=== PATIENT | female | born 1940 | race Caucasian/White ===

== ENCOUNTER → 2023-10-07 12:33 | Outpatient (REF) | payer MEDICARE, SELFPAY ==
[2023-10-07 12:58] LABS: % Basophils 0.7 % (0-2); % Eosinophils 2.4 % (0-6); % Immature Granulocytes 0.1 % (0-0.5); % Lymphocytes 28.9 % (20.5-51.1); % Monocytes 7.4 % (1.7-9.3); % Neutrophils 60.5 % (42.2-75.2); Absolute Basophils 0.1 10^3/uL (0-0.2); Absolute Eosinophils 0.2 10^3/uL (0-0.7); Absolute Monocytes 0.5 10^3/uL (0.1-0.6); Absolute Neutrophils 4.1 10^3/uL (1.4-6.5); Hematocrit 34.9 % (37.0-47.0); Hemoglobin 11.8 g/dL (12.0-16.0); Mean Corp Hgb Conc. 33.8 g/dL (33.0-37.0); Mean Corpuscular Hgb 27.8 pg (27.0-31.0); Mean Corpuscular Volume 82.3 fL (81.0-99.0); Mean Platelet Volume 11.2 fL (7.4-10.4); Nucleated Red Blood Cells % 0 %; Platelet Count 209 10^3/uL (130-400); Red Blood Cell Count 4.24 10^6/uL (4.20-5.40); Red Cell Dist. Width 14.7 % (11.5-14.5); White Blood Cell Count 6.7 10^3/uL (4.8-10.8)
[2023-10-07 13:06] LABS: ALT (SGPT) 11 U/L (0-35); AST (SGOT) 21 U/L (14-36); Albumin 3.2 g/dl (3.5-5.0); Alkaline Phosphatase 72 U/L (38-126); Blood Urea Nitrogen 16 mg/dl (7-17); Calcium 8.8 mg/dl (8.4-10.2); Carbon Dioxide 30 mmol/L (22-30); Chloride 100 mmol/L (98-107); Glucose 91 mg/dl (70-99); Potassium 3.8 mmol/L (3.5-5.1); Sodium 137 mmol/L (135-145); Total Bilirubin 0.5 mg/dl (0.2-1.3); Total Protein 6.2 g/dl (6.3-8.2); eGFR > 60.00
[2023-10-08 11:15] LABS: Glycohemoglobin (HgbA1c) 5.6 % (4.0-5.6)
== END ==
LOC: OLABMERCHI 12:33
PROVIDERS: ATTENDING PHYSICIAN Nurse Practitioner Gerontology; FAMILY PHYSICIAN Hospitalist
DX: D64.9 Anemia, unspecified (principal); R94.4 Abnormal results of kidney function studies; E11.9 Type 2 diabetes mellitus without complications
CPT/HCPCS: 36415; 80053; 83036; 85025

== ENCOUNTER 2024-01-26 18:27 | Inpatient (IN) | payer MEDICARE, OTHER, BC, SELFPAY ==
[2024-01-24] VITALS (14 sets, daily range): BP systolic 128–173; BP diastolic 36–120; BMI 30.2
[2024-01-24 11:13] LABS: % Basophils 0.8 % (0-2); % Immature Granulocytes 0.3 % (0-0.5); % Lymphocytes 27.2 % (20.5-51.1); % Monocytes 6.7 % (1.7-9.3); Absolute Basophils 0.1 10^3/uL (0-0.2); Absolute Eosinophils 0.2 10^3/uL (0-0.7); Absolute Lymphocytes 2.2 10^3/uL (1.2-3.4); Absolute Monocytes 0.5 10^3/uL (0.1-0.6); Hemoglobin 11.9 g/dL (12.0-16.0); Mean Corpuscular Hgb 28.1 pg (27.0-31.0); Mean Corpuscular Volume 82.5 fL (81.0-99.0); Mean Platelet Volume 9.3 fL (7.4-10.4); Nucleated Red Blood Cells % 0 %; Platelet Count 213 10^3/uL (130-400); Red Blood Cell Count 4.24 10^6/uL (4.20-5.40); Red Cell Dist. Width 14.3 % (11.5-14.5)
[2024-01-24 11:29] LABS: Ammonia < 9 umol/L (9-30)
[2024-01-24 12:12] LABS: Blood Urea Nitrogen 13 mg/dl (7-17); Calcium 8.9 mg/dl (8.4-10.2); Carbon Dioxide 27 mmol/L (22-30); Chloride 104 mmol/L (98-107); Estimated Creatinine Clearance 53 ml/min; Glucose 107 mg/dl (70-99); Sodium 134 mmol/L (135-145); eGFR > 60.00
[2024-01-24] MEDS: ATIVAN 0.5 MG IV (12:33)
[2024-01-24 12:44] LABS: TSH Reflex To Free T4 0.54 uIU/ml (0.47-4.68)
[2024-01-24 14:46] LABS: ALT (SGPT) 13 U/L (0-35); AST (SGOT) 21 U/L (14-36); Albumin 3.3 g/dl (3.5-5.0); Alkaline Phosphatase 86 U/L (38-126); Blood Urea Nitrogen 12 mg/dl (7-17); Calcium 8.7 mg/dl (8.4-10.2); Carbon Dioxide 31 mmol/L (22-30); Chloride 104 mmol/L (98-107); Estimated Creatinine Clearance 47 ml/min; Glucose 101 mg/dl (70-99); Potassium 3.8 mmol/L (3.5-5.1); Sodium 139 mmol/L (135-145); Total Bilirubin 0.5 mg/dl (0.2-1.3); Total Protein 6.4 g/dl (6.3-8.2); eGFR > 60.00
--- NOTE | 2024-01-24 15:25 | ED.GENMED ---
History of Present Illness
General
Chief Complaint: Change in Mental Status
Source: patient, spouse and family
Exam Limitations: none
Time Seen by Provider: 01/24/24 10:42
Nursing documentation reviewed up to this point in time: agreed with
Travel History
Have you had any contact with someone who has COVID-19?: No
Do you have any symptoms of coronavirus? Fever > 100 degrees, chills, cough, shortness of breath, sore throat, loss of taste or smell, muscle aches, or headache?: No
History of Present Illness
History of Present Illness:
Patient is an 84-year-old female who presents to the emergency department with mental status changes. Patient was diagnosed with minor dementia approximately 5 years ago. However over the past 3 months the patient has gotten significantly worse
especially the past 6 weeks. Patient is now becoming nearly nonverbal. Patient has no appetite and is constantly fatigued. Patient requires a wheelchair and is not able to walk independently. Patient is able to toilet on her own but not bathing.
Patient seems to be leaning to her right. Patient's speech is gradually gotten worse. Patient denies fever chills, upper respiratory infection.
Past History
Past History
ED Past Medical History: HTN, Psychiatric and Other (Dementia)
Social History
Tobacco: Non-smoker
Personal:
Review of Systems
Review of Systems
Unable to obtain full review of systems at this time due to: dementia
All Other Systems: Not applicable
Phy Exam
General Physical Exam
General Presentation: well appearing and no apparent distress
General age: appears older than age
General Skin: warm and dry
General Habitus: normal and elderly
General Mental: alert and usual mental status (Patient is unable to answer any questions on her own)
General Hydration: appears well hydrated
ENT Exam
ENT Exam: neck supple and normocephalic
Eye Exam
Eye Exam: EOMI, conjunctiva normal and globe normal
Cardiovascular Exam
Cardiovascular Exam: regular rate/rhythm, no edema, no gallop, no JVD and no murmur
Heart Sounds: normal
Pulmonary Exam
Pulmonary Exam: lungs clear, no respiratory distress, chest non tender and no stridor
Gastrointestinal Exam
Gastrointestinal Exam: normal bowel sounds, non tender, soft and no organomegaly
Neurological Exam
Neurological Exam: alert (But disoriented to place and time), CN II-XII intact, no motor deficits, confused and cerebellum intact
Musculoskeletal Exam
Musculoskeletal Exam: full ROM
Skin Exam
Skin Exam: normal color, warm/dry, no rash and no petechia
Psychiatric Exam
Psychiatric Exam: agitated (At times)
Scores
Heart Failure Risk
Heart Failure Risk Score: Not Applicable
Heart Score for Chest Pain Patients
STEMI patient?: Not applicable
Withdrawal Assessment of Alcohol
Withdrawal Assessment Completed?: Not applicable
Course
Orders/Labs/Results
Orders:
Orders
01/24/24 10:59
Urinalysis Reflex To Culture Urgent
Date Specimen was Collected: 01/24/24
Time Specimen was Collected: 11:12
01/24/24 11:08
Ammonia Urgent
Basic Metabolic Panel Urgent
Complete Blood Count/With Diff Urgent
TSH Reflex To Free T4 Urgent
01/24/24 11:25
CT Head W/o Iv Contrast Urgent
Comment:
Reason For Exam: change in mental status
01/24/24 12:30
Lorazepam [Ativan] 0.5 mg IV NOW STA
01/24/24 14:20
Comprehensive Metabolic Panel Urgent
Abnormal Lab Results
01/24/24 01/24/24
11:08 14:20
Hgb 11.9 L g/dL
(12.0-16.0)
Hct 35.0 L %
(37.0-47.0)
Sodium 134 L mmol/L
(135-145)
Carbon Dioxide 31 H mmol/L
(22-30)
Glucose 107 H mg/dl 101 H mg/dl
(70-99) (70-99)
Ammonia < 9 L umol/L
(9-30)
Albumin 3.3 L g/dl
(3.5-5.0)
01/24/24 11:08
01/24/24 14:20
Vital Signs
Initial and Last Documented VS:
Initial Vital Signs
Temp Pulse Resp BP Pulse Ox
98.6 F 68 18 152/78 94
01/24/24 09:41 01/24/24 09:41 01/24/24 09:41 01/24/24 09:41 01/24/24 09:41
Last Documented Vital Signs
Temp Pulse Resp BP Pulse Ox
98.6 F 68 18 143/54 91
01/24/24 09:41 01/24/24 09:41 01/24/24 09:41 01/24/24 15:00 01/24/24 14:51
*Radiology
Radiology exam reviewed: radiology read reviewed
*Pulse Oximetry
Patient hypoxic: no
*EKG
Interpreted by ED Provider?: NA
*Licensed Massage Practitioner Interpretation
Rate: normal
Interpretation: normal
Heart Rate: 70
Rhythm: sinus
*Critical Care Note
Total Time (30-74mins, 75-104mins- exclusive of procedures): Not Applicable
Update Note
Update Note:
Patient seen by neurology and admission recommended. Patient will be admitted to hospitalist.
ED Attending Note
-
Portions of this chart may have been created with voice recognition software.� Occasional wrong word or��sound alike� substitutions may have occurred due to the inherent limitations of voice recognition software.
Discharge Plan
Departure
Patient Disposition: Admit
Date of Disposition: 01/24/24
Time of Disposition: 15:25
Admit to: Telemetry
Admit to doctor: Hospitalist
Presentation/result/management discussed w/ accepting MD/DO: Neurology
Patient with high blood pressure during this ER visit?: Yes
Condition: Fair
Covid-19: Not Applicable
Discharge Problem:
Acute on chronic alteration in mental status
Prescriptions:
No Action
donepezil 10 mg tablet
5 mg PO DAILY
levothyroxine 25 mcg tablet
25 mcg PO DAILY
metoprolol succinate 25 mg tablet extended release 24 hr
12.5 mg PO DAILY
lisinopril 40 mg tablet
20 mg PO DAILY
Trintellix 20 mg tablet
15 mg PO DAILY
Referrals:
Jocelyn Pelaez DO [Family Provider] -
Interventions
Interventions:
*Risk Screen - Suicide Last Done: 01/24/24 11:12
*General Assessment Last Done: 01/24/24 11:12
*Neglect/Abuse Screening Last Done: 01/24/24 11:12
ED- Fall Risk Assessment Last Done: 01/24/24 11:10
*ED COVID-19 Vaccine History Last Done: 01/24/24 09:49
ED- Neurological Assessment Last Done: 01/24/24 11:10
ED- Cardiac Assessment Last Done: 01/24/24 11:10
ED Swallowing Screen Last Done: 01/24/24 11:11
Discharge Date and Time
Print Language: CITIZEN OF [place]
--- NOTE | 2024-01-24 16:37 | CON.NEURO4 ---
Addendum entered and electronically signed by Roscoe Marion MD 01/25/24 06:55:
Recommendations
-MRI brain without contrast MRA neck with contrast
-Aspirin 81 mg daily
-Minimize sedating medications avoid benzodiazepines
-Neuro checks and NIH scales
-Normotension
-Mobilization PT/OT
-Check TSH/B12, B1
-Follow basic electrolytes, kidney function
-Okay to continue Vortioxetine from my POV
-Counseled family on my concern for patient's generalized decline, agreeing she most likely has underlying dementia, and overall frailty and expectations moving forward
Original Note:
Consultation - Neurology 4
-
CONSULTING PHYSICIAN: Lily Marion
REFERRING PHYSICIAN: ER
DICTATED BY: Lily Marion
DATE/TIME OF REQUEST: 01/24/24
DATE/TIME OF CONSULTATION: 01/24/24
Reason for Consultation: Worsening overall function, mental status and speech
History of Present Illness:
Patient is an 84-year-old woman with a past ministry of nonspecific dementia, hypertension, depression who presents to the hospital after being referred by primary care doctor due to significant overall worsening in function as well as gait and
speech over the past 2 weeks which seem to be an abrupt change.
Patient had had an overall decline over the course of the couple months even before her rapid decline 2 weeks ago. She had had at first COVID infection at the end of July and early August, then followed by pneumonia for which she was treated
with antibiotics in the early part of September, and then had what was felt to be most likely shingles in October with a small rash bilaterally in the upper shoulders. With each of these conditions she did not make a significant back and she had
significant immobility during them.
Working with physical therapy has seen significant worsening in her walking ability to the point where she cannot walk on her own. She also seems to be leaning to the left a little bit more in the past 2 weeks and has significant change in her
speech around 2 weeks ago. Her noticed that there may have been some subtle dragging in the left leg which seem to be a bit of a change from baseline although she has had some orthopedic issues of the left leg in the past.
Patient has had no prior history of known TIA or ischemic stroke or heart attack.
Patient had been going through a lot of emotional and depression issues at the end of July and had had some medication adjustments by her psychiatrist at that time. She had been tried on Abilify but now has been on Vortioxetine.
Patient was diagnosed with early dementia along with some depression around 5 years ago they did see a neurologist at this time and have continue to follow with a psychiatrist buthave not seen a neurologist in a couple of years. Family does feel
like they have seen cognitive changes in memory consistent with worsening dementia over the past 5 years.
Past Medical History: Unspecified dementia, depression, hypothyroidism, hypertension
Family History: Non-contributory
Social History: and lives with her in independent living community, she is retired from work, no significant tobacco alcohol or recreational drugs
Allergies: No known drug allergies
Review of Symptoms:
Patient denies any fever, headache, chest pain, shortness of breath, GI or symptoms.
Physical Exam:
Elderly woman no distress no signs of head or neck trauma no meningismus eyes are clear oropharynx is clear heart rate regular breathing unlabored abdomen soft nontender no lower extremity edema
Neurologic Examination:
Patient is awake and alert, her responses are slow, she does identify her and each of her children were appropriately. Patient can say her name. She has limited recall as to recent events and cannot give adequate history. She is not able
to perform any simple subtractions but can state that there are 4 quarters in a dollar. She is unable to identify the color red on her debit card. She is unable to obey three-step commands, but will obey simple one-step commands consistently.
Significant psychomotor slowing. No obvious hemineglect.
Cranial nerve examination shows no hemianopia visual lerner intact confrontation bilaterally smile symmetric no dysarthria extraocular's are movement with resting gaze midline
Motor examination shows generalized weakness 4/5 shoulder abduction bilaterally, no pronator drift downwards on the arms, leg efforts show 3/5 hip flexion bilaterally.
Intact noxious stimulation throughout
Reflexes are diminished throughout no clonus or asymmetry of reflexes
No ataxia and spontaneous movements of arms or when held above her head
Gait defferred
Neuro Imaging: CT head with asymemtry on right parietal lobe crowded nearly absent sulci but no clear hypodensity, possible anatomic variant like polymicrogyria versus subacute infarct, less likely a neoplasm. No hemorrhage
Impression
1. Patient has had significant abrupt change around 2 weeks ago raising the possibility of an ischemic stroke happening 2 weeks ago.
2. Patient has had global overall decline most likely attributable to COVID-19, then pneumonia, then shingles representing 3 different significant health insults in an elderly patient with likely pre-existing dementia.
3. Patient received a diagnosis of early dementia around 5 years ago, most likely would be either Alzheimer's disease versus vascular based dementia.
4. Hypertension
5. Depression, had been a significant issue in July 2023
Recommendations:
Discussed patient care with: ED, patient and her family at bedside
NIH Stroke Score
Subsequent NIH Scale
Date of Subsequent NIH Scale: 01/24/24
Time of Subsequent NIH Scale: 16:48
NIH Stroke Score
Level of Consciousness: 0 - Alert
LOC Questions: 2-Neither correct
LOC Commands: 1-Performs one correctly
Best Horizontal Gaze: 0-Normal
Visual Lerner: 0=Normal, no visual loss
Facial Palsy: 0=Normal, symmetrical
Motor - Right Arm: 0=No drift 10 seconds
Motor - Left Arm: 0=No drift 10 seconds
Motor - Right Le-Partial vs. gravity
Motor - Left Le-Partial vs. gravity
Limb Ataxia: 0-Absent
Sensation: 0-Normal
Best Language: 2-Severe aphasia
Dysarthria: 1-Mild slurring
Extinction and Inattention: 0-No abnormality
Total Score:: 10
Home Medications
-
Home Medications
donepezil 10 mg tablet 5 mg PO DAILY 01/24/24
levothyroxine 25 mcg tablet 25 mcg PO DAILY 01/24/24
lisinopril 40 mg tablet 20 mg PO DAILY 01/24/24
metoprolol succinate 25 mg tablet,extended release 24 hr 12.5 mg PO DAILY 01/24/24
vortioxetine 20 mg tablet (Trintellix) 15 mg PO DAILY 01/24/24
Allergies
-
Allergies
Allergy/AdvReac Type Severity Reaction Status Date / Time
No Known Allergies Allergy Verified 01/24/24 09:53
Vital Signs / Labs
-
Vital Signs and Labs:
Temp Pulse Resp BP Pulse Ox
98.6 F 68 18 145/63 91
01/24/24 09:41 01/24/24 09:41 01/24/24 09:41 01/24/24 16:00 01/24/24 14:51
01/24/24 11:08
01/24/24 14:20
01/24/24 01/24/24
11:08 14:20
Hgb 11.9 L
Hct 35.0 L
Sodium 134 L
Carbon Dioxide 31 H
Glucose 107 H 101 H
Ammonia < 9 L
Albumin 3.3 L
[2024-01-24] MEDS: ASPIRIN 325 MG PO (17:06)
--- NOTE | 2024-01-24 17:08 | CM ---
Patient seen at bedside with physician, patient daughters and . Patient lives with in an apartment at [facility]. Patient with diagnosis per daughter of dementia, and POA/Advance directive provided and copy
placed on chart by nursing. [facility] and daughter has reached out to [facility] for aides and supports. Patient PCP at [facility] is Dr. Pelaez and they use the [facility] in [facility]. Patient with new
issues in last several weeks. Patient family anticipate need for either aides or snf. Patient being admitted as OBS/BACA; form reviewed and signed by patient , copy given to nursing to scan into chart. Patient family supportive. CM will
continue to follow for discharge planning needs.
Plan; SNF vs home with aides/PT/OT and speech/VN at [facility]
--- NOTE | 2024-01-24 17:09 | HPS.HSE ---
Family Physician
-
Family Physician: Jocelyn Pelaez DO
Chief Complaint
-
Fatigue, difficulty ambulating, no appetite
History of Present Illness
Patient is an 84-year-old female who is a resident of [facility] who was diagnosed with mild dementia in November 2020. History has been obtained through speaking with the patient's daughters and . In July 2023, patient
developed COVID, September and had pneumonia, October then had shingles. Patient has been receiving physical therapy and Occupational Therapy and 2 weeks ago the patient's daughter got a phone call that the patient's mobility has declined. She stated
that she has been sleeping and her cognitive decline has also been worse over the last 2 weeks. Memory issues and speech have been an issue. Patient was dragging her left foot and leaning toward the right as well. Workup in the emergency
department finds her to be slightly anemic with a hemoglobin of 11.9 and CAT scan of her head with a possibility of a subacute stroke. It was felt that she needed to come in for a neurology workup. She is being brought in as observation.
Medical History
Past Medical History
Past Medical History: Reports Other
Additional Past Medical History:
Mild dementia diagnosed in November 2020
Essential hypertension
Hypothyroidism
Depression
Past Surgical History: Reports Other
Additional Past Surgical History:
Hysterectomy
Appendectomy
Left knee total knee replacement x 2
Social History
Unable to obtain full social history at this time due to: Dementia (This has been obtained by family)
Tobacco: Former Smoker (Quit tobacco in 1979)
Alcohol: None
Drug: None
Personal:
Living: With Family
Family History
Family History: Other (Brother had dementia after heart surgery, sister had dementia after colon surgery--- cancer and heart disease runs in her family)
Allergies / Home Medications
Allergies reflects when Allergies were last updated in [employer].
Home Medications with original date entered in [employer]
Allergy/Medication List:
Allergies
Allergy/AdvReac Type Severity Reaction Status Date / Time
No Known Allergies Allergy Verified 01/24/24 09:53
Home Medications
donepezil 10 mg tablet 5 mg PO DAILY 01/24/24
levothyroxine 25 mcg tablet 25 mcg PO DAILY 01/24/24
lisinopril 40 mg tablet 20 mg PO DAILY 01/24/24
metoprolol succinate 25 mg tablet,extended release 24 hr 12.5 mg PO DAILY 01/24/24
vortioxetine 20 mg tablet (Trintellix) 15 mg PO DAILY 01/24/24
Review of Systems
-
Unable to obtain full review of systems at this time due to: Dementia
History Source: Family
Constitutional: Reports No Symptoms
EENT: Reports No Symptoms
Respiratory: Reports No Symptoms
Cardiac: Reports No Symptoms
Abdomen/GI: Reports Anorexia
: Reports No Symptoms
Musculoskeletal: Reports No Symptoms
Neurological: Reports Headache, Weakness and Other (Tremors per family--dragging left foot behind her and leaning toward the right)
Endocrine: Reports No Symptoms
Hematologic/Lymphatic: Reports No Symptoms
Psych: Reports No Symptoms
Physical Exam
Vital Signs
Vital Signs
Temp Pulse Resp BP Pulse Ox
98.6 F 68 18 145/63 91
01/24/24 09:41 01/24/24 09:41 01/24/24 09:41 01/24/24 16:00 01/24/24 14:51
Physical Exam
General: Well Developed, Well Nourished and No Apparent Distress
HEENT: NormoCephalic and Anicteric; No Oxygen
Respiratory: Clear; No Wheezes, Rales, Rhonchi or Crackles
Cardiac: S1/S2 and Regular Rhythm; No Murmur
GI: Soft, Non Tender, Non Distended and Normal Bowel Sounds
Musculoskeletal: No Clubbing, No Cyanosis and No Edema
Skin: Warm and Dry
Neuro: Awake and Nonfocal/grossly intact (Follows commands, decreased strength in bilateral lower extremities); No Oriented or Tremors (None witnessed)
Psych: Calm
Laboratory Results
-
01/24/24 11:08
01/24/24 14:20
Laboratory Results
Total Bilirubin 0.5 mg/dl (0.2-1.3) 01/24/24 14:20
AST 21 U/L (14-36) 01/24/24 14:20
ALT 13 U/L (0-35) 01/24/24 14:20
Alkaline Phosphatase 86 U/L (38-126) 01/24/24 14:20
Impression/Plan
-
Patient is an 84-year-old female
Change in mental status/activities of daily living--I believe that this is an exacerbation or progression of dementia not encephalopathy--OBS--given CAT scan finding cannot rule out subacute stroke--appreciate neurology--agree with MRI, checking
TSH, B12, folate and reversible causes such as infection--doubt seizures--no indication that ventricles are enlarged on CAT scan but we will keep normal pressure hydrocephalus in the differential--continue aspirin, check lipid panel--PT/OT/speech
Dementia--continue donepezil
Essential hypertension--continue lisinopril and metoprolol with holding parameters
Depression--continue Trintellix
DVT prophylaxis--sequential teds
CODE STATUS--DNR
--- NOTE | 2024-01-24 18:30 | PTCARENOTE ---
Pt admitted to rm 409-2 at this time from the ED. Pt AAOx1, no complaints of pain/SOB, SR on telemetry, HR in the 70s. See NIHSS and assessment for further detail. Oriented pt and family to call cuellar, pressure ulcer reduction, fall risk, plan of
care, reporting concerns etc- family verbalized understanding, pt unable to verbalize understanding. Bed alarm in place for pt's safety and call cuellar within reach.
[2024-01-24 20:33] LABS: Folate 8.3 ng/ml (2.76-20); Vitamin B12 514 pg/ml (239-931)
[2024-01-24 22:51] LABS: Urine Albumin Trace (Neg - Trace); Urine Bilirubin 1+ (Negative); Urine Character Slightly Cloudy (Clear); Urine Color Yellow; Urine Glucose Negative (Negative); Urine Ketone Trace (Negative); Urine Leukocyte Trace (Negative); Urine Nitrite Negative (Negative); Urine Occult Blood Negative (Negative); Urine Urobilinogen 2+ (Neg - 1+)
[2024-01-24 22:54] LABS: Urine Bacteria Many (Negative); Urine Squamous Cell >30 /LPF (Few)
[2024-01-24 22:55] LABS: Urine Red Blood Cell 0-2 /HPF (0-2); Urine White Cell 16-20 /HPF (0-5)
--- NOTE | 2024-01-24 23:52 | PTCARENOTE ---
Medsitter now in use. Pt has been disoriented to time, place, & situation. Does not understand/remember limitations. Call cuellar use explained several times; no evidence of understanding use. Pt found several times w/legs over side of bed. Medsitter
added in addition to bed alarm.
[2024-01-25] VITALS (8 sets, daily range): BP systolic 121–182; BP diastolic 64–83; PULSE 75; O2SAT 93; BMI 30.2
[2024-01-25] MEDS: SYNTHROID 25 MCG PO (05:33)
[2024-01-25 06:33] LABS: Hematocrit 35.3 % (37.0-47.0); Hemoglobin 11.9 g/dL (12.0-16.0); Mean Corp Hgb Conc. 33.7 g/dL (33.0-37.0); Mean Corpuscular Hgb 28.3 pg (27.0-31.0); Mean Corpuscular Volume 83.8 fL (81.0-99.0); Mean Platelet Volume 9.3 fL (7.4-10.4); Platelet Count 192 10^3/uL (130-400); Red Blood Cell Count 4.21 10^6/uL (4.20-5.40); Red Cell Dist. Width 13.9 % (11.5-14.5); White Blood Cell Count 7.9 10^3/uL (4.8-10.8)
[2024-01-25 07:17] LABS: ALT (SGPT) 12 U/L (0-35); AST (SGOT) 22 U/L (14-36); Albumin 3.2 g/dl (3.5-5.0); Alkaline Phosphatase 75 U/L (38-126); Blood Urea Nitrogen 12 mg/dl (7-17); Calcium 8.7 mg/dl (8.4-10.2); Carbon Dioxide 30 mmol/L (22-30); Chloride 104 mmol/L (98-107); Estimated Creatinine Clearance 53 ml/min; Glucose 98 mg/dl (70-99); HDL Cholesterol 45 mg/dl; LDL Cholesterol, Calculated 151 mg/dl; Magnesium 1.9 mg/dl (1.6-2.3); Potassium 3.9 mmol/L (3.5-5.1); Sodium 138 mmol/L (135-145); Total Bilirubin 0.7 mg/dl (0.2-1.3); Total Cholesterol 217 mg/dl (50-199); Total Protein 6.4 g/dl (6.3-8.2); Triglyceride 106 mg/dl (10-149); Very Low Density Lipoprotein 21 mg/dl (0-30); eGFR > 60.00
[2024-01-25 07:27] LABS: TSH Reflex To Free T4 1.04 uIU/ml (0.47-4.68)
--- NOTE | 2024-01-25 08:15 | W.PN.NEURO.1 ---
Addendum entered and electronically signed by Roscoe Marion MD 01/25/24 11:23:
I saw and evaluated the patient I reviewed the note by Emma Valencia agree with the findings the following comments: :
Patient is an 84-year-old woman with a past ministry of nonspecific dementia, hypertension and depression presented hospital with worsening overall functional mental and speech status occurring around 2 weeks ago. She has had a progressive decline
in overall function for the past couple of months with COVID infection in , then pneumonia, then shingles suspected as a rash in the shoulders bilaterally in October. She did not make much of a bounce back after each of these insults.
She been diagnosed with early signs of dementia around 5 years ago by neurologist, was having significant mood and emotional depression problems in July 2023.
CT head noncontrast with the right parietal asymmetry and little sulci in the region, could represent polymicrogyria, subacute infarct or less likely neoplasm
Neurologic examination largely unchanged from yesterday
Patient is awake alert and pleasant, shows significant cognitive impairment with inability to obey complex commands, she can say her name and her 's name, will obey simple commands but no ability to obey complex commands such as calculation
her name the months of the year
Cranial nerves II through XII appear normal to me
Motor examination shows no pronator drift 4/5 shoulder abduction arm flexion hip flexion is 4 -/5 brief effort with hip flexion resistance.
Assessment:
-Possibility for right-sided subacute stroke as an explanation for her worsening around 2 weeks ago
-Alternatively could also simply be a progression of dementia on top of progressive frailty from the insults of recent illnesses over the past couple of months
-Alzheimer's versus a vascular based dementia is suspected as most likely
-Has abnormal urinalysis might just be asymptomatic bactiuria, no signs suggestive of significant infection on systemic WBC, no fever and non-toxic appearing
Recommendations
-Check Vitamin B12, B1, TSH
-Minimize sedating medications
-Continue Donepezil not going to recommend adding Memantine at this time
-Check MRI brain and MRA neck
-Continue aspirin 81 mg daily
-Neuro checks and NIH scales
-Follow urine culture,
-Symptomatic care for dementia, supportive care and case management to assist if any further support for home
Original Note:
Documented by User: Emma Rice NP 01/25/24 11:14
Today's Communication / Plan
-
.
Neuro Assessment/Plan
Assessment
84-year-old female with a PMH of nonspecific dementia, HTN, depression who presents to the hospital on 01/24/24 after being referred by primary care doctor due to significant overall worsening in function as well as gait and speech over the past 2
weeks which seem to be an abrupt change.
Patient had had an overall decline over the course of the couple months even before her rapid decline 2 weeks ago. She had had at first COVID infection at the end of July and early August, then followed by pneumonia for which she was treated
with antibiotics in the early part of September, and then had what was felt to be most likely shingles in October with a small rash bilaterally in the upper shoulders. With each of these conditions she did not make a significant back and she had
significant immobility during them.
Working with physical therapy has seen significant worsening in her walking ability to the point where she cannot walk on her own. She also seems to be leaning to the left a little bit more in the past 2 weeks and has significant change in her
speech around 2 weeks ago. Her noticed that there may have been some subtle dragging in the left leg which seem to be a bit of a change from baseline although she has had some orthopedic issues of the left leg in the past.
Patient was diagnosed with early dementia along with some depression around 5 years ago they did see a neurologist at this time and have continue to follow with a psychiatrist buthave not seen a neurologist in a couple of years. Family does feel
like they have seen cognitive changes in memory consistent with worsening dementia over the past 5 years.
-CT head 01/24/24 with asymmetry on right parietal lobe crowded nearly absent sulci but no clear hypodensity, possible anatomic variant like polymicrogyria versus subacute infarct, less likely a neoplasm. No hemorrhage.
I. Patient has had significant abrupt change around 2 weeks ago raising the possibility of an ischemic stroke happening 2 weeks ago.
II. Patient has had global overall decline most likely attributable to COVID-19, then pneumonia, then shingles representing 3 different significant health insults in an elderly patient with likely pre-existing dementia.
III. Patient received a diagnosis of early dementia around 5 years ago, most likely would be either Alzheimer's disease versus vascular based dementia.
IV. Urinalysis suggestive of UTI, urine culture pending.
V. Hypertension.
. Depression, had been a significant issue in July 2023.
Plan
-Continue aspirin 81mg daily.
-MRI brain, MRA neck pending.
-Goal normotension.
-Minimize sedating medications, avoid benzodiazepines.
-If MRI brain confirms a stroke, LDL goal will be <70. LDL is 151.
-Goal normoglycemia, hbA1c is 5.2.
-NIHSS and neurological checks per unit guidelines.
-Provide patient/family with a stroke education packet.
-PT/OT/ST evaluations.
-DVT prophylaxis.
-Needs eventual outpatient Neuropsychological testing. Ok to continue home donepezil 5mg daily and vortioxetine 15mg daily from Neurology's perspective.
-Will follow pending results.
Subjective/Objective
Subjective Data
Date of Service: January 25, 2024
No acute events overnight. Patient is alert and pleasantly confused today, following simple commands. She reports a mild headache and dizziness. She denies any vision changes, speech/swallow difficulty, numbness, focal weakness, chest pain,
palpitations, and shortness of breath.
Objective Data
Vital Signs
Temp Pulse Resp BP Pulse Ox
97.3 F 69 18 182/83 96
01/25/24 03:12 01/25/24 03:12 01/25/24 03:12 01/25/24 03:12 01/25/24 03:12
Lab Results
01/25/24 06:07
01/25/24 06:07
Sodium 138 mmol/L (135-145) 01/25/24 06:07
Potassium 3.9 mmol/L (3.5-5.1) 01/25/24 06:07
BUN 12 mg/dl (7-17) 01/25/24 06:07
Glucose 98 mg/dl (70-99) 01/25/24 06:07
Calcium 8.7 mg/dl (8.4-10.2) 01/25/24 06:07
LDL Cholesterol, Calc 151 mg/dl 01/25/24 06:07
Vitamin B12 514 pg/ml (239-931) 01/24/24 19:01
Patient Allergies
No Known Allergies Allergy (Verified 01/24/24 09:53)
LDL Level: >70, statin ordered
Review of Systems
-
History Source: Patient
EENT: Negative Blurry Vision, Decreased Vision or Swallowing Difficulty
Respiratory: Negative Cough or Trouble Breathing
Cardiac: Negative Chest Pain or Palpitations
Abdomen/GI: Negative Nausea
Neuro: Dizzy and Headache; Negative Weakness, Numbness, Ataxia, Tremors or Speech Problem
Physical Exam
-
General: No Apparent Distress
Eyes: No Ptosis and PERRLA
HEENT: Normocephalic and Atraumatic
Neck: Full Range of Motion
Respiratory: No Dyspnea
GI: Non-distended
Extremities: No Clubbing, No Cyanosis and No Edema
Psych: Confused
Extended Neurological Exam
Mood & Affect: Mood Unremarkable and Affect Unremarkable
Attention Span & Concentration: Awake, Alert and Interactive
Memory: Reduced (oriented to self only)
Tremor: Hand Tremor Absent and Head Tremor Absent
Involuntary Movement: None
Speech: Quality Unremarkable, Quantity Unremarkable, Rate of Production Unremarkable and Expressive Aphasia (mild expressive aphasia)
Cranial Nerve II: Left Eye: Pupillary Reactivity Unremarkable, Pupillary Size Unremarkable and Visual Lerner Intact
Cranial Nerve II: Right Eye: Pupillary Reactivity Unremarkable, Pupillary Size Unremarkable and Visual Lerner Intact
Cranial Nerves III, IV, : Extraocular Movement: Extraocular Movement Full in all Directions
Cranial Nerve VII: Facial Symmetry: Reduced (slight left facial drooping)
Cranial Nerve VIII: Hearing: Unremarkable Hearing to Normal Conversational Volume
Cranial Nerves IX, X: Palate Movement: Palate Elevation Symmetric
Cranial Nerve XII: Tongue Protusion: Midline
Muscle Strength, Overall: Reduced Throughout (BUE 4+/5, BLE 2/5)
Muscle Bulk & Tone: Bulk Unremarkable and Tone Unremarkable
Pronator Drift: No Drift in Upper Extremities and Unable to Assess (BLE, no effort against gravity)
Touch Sensation: Unable to Assess
Coordination: Unable to Assess
Babinski Sign: Absent Bilaterally
Modified Outlook Score (MRS)
-
Modified Outlook Scale (mRS): Moderately severe disability. Unable to attend to bodily needs/walk.
Score: 4
Data Reviewed
-
CT Head: Report Reviewed and Image Reviewed
MRI Head: Pending
MRA Head: Pending
Labs: Report Reviewed
Lipid Profile: Report Reviewed
HgbA1C: Report Reviewed
Reviewed with: Physician and Patient
Medications
-
Active Medications
Generic Name Dose Route Start Last Admin
Trade Name Freq PRN Reason Stop Dose Admin
Acetaminophen 650 mg 01/24/24 18:20
Acetaminophen 650 Mg Rectal Suppository RECTAL 02/21/24 18:19
Q4HPRN PRN
ROE, mild pain, or temp >100.4F
Acetaminophen 650 mg 01/24/24 18:20
Acetaminophen 325 Mg Tablet PO 02/21/24 18:19
Q4HPRN PRN
ROE, mild pain, or temp >100.4F
Aspirin 81 mg 01/25/24 08:00
Aspirin 81 Mg Chewable Tablet PO 02/22/24 07:59
DAILY ELROY
Donepezil HCl 5 mg 01/25/24 08:00
Donepezil 5 Mg Tablet PO 02/22/24 07:59
DAILY ELROY
Levothyroxine Sodium 25 mcg 01/25/24 06:00 01/25/24 05:33
Levothyroxine 25 Mcg Tablet PO 02/22/24 05:59 25 mcg
DAILY @ 0600 ELROY Administration
Lisinopril 20 mg 01/25/24 08:00
Lisinopril 20 Mg Tablet PO 02/22/24 07:59
DAILY ELROY
Metoprolol Succinate 12.5 mg 01/25/24 08:00
Metoprolol 12.5 Mg Extended Release Dose (1/2 Of 25 Mg Xl Tablet) PO 02/22/24 07:59
DAILY ELROY
Vortioxetine [ 0 mg 01/25/24 08:00
Trintellix] 15 Mg PO 02/22/24 07:59
Tablet Po Daily DAILY ELROY
Sodium Chloride 0 flush 01/24/24 19:00
Sodium Chloride 0.9% (Flush) Syringe IV 02/21/24 18:59
PER PROTOCOL ELROY
Home Medications
�Medication �Instructions �Recorded
donepezil 10 mg tablet 5 mg PO DAILY Alzheimer's 01/24/24
levothyroxine 25 mcg tablet 25 mcg PO DAILY Thyroid 01/24/24
lisinopril 40 mg tablet 20 mg PO DAILY Blood Pressure 01/24/24
metoprolol succinate 25 mg 12.5 mg PO DAILY Blood Pressure 01/24/24
tablet,extended release 24 hr
vortioxetine 20 mg tablet 15 mg PO DAILY Depression 01/24/24
(Trintellix)
NIH Stroke Score
Subsequent NIH Scale
Date of Subsequent NIH Scale: 01/25/24
Time of Subsequent NIH Scale: 09:00
NIH Stroke Score
Level of Consciousness: 0 - Alert
LOC Questions: 2-Neither correct
LOC Commands: 0-Performs both correctly
Best Horizontal Gaze: 0-Normal
Visual Lerner: 0=Normal, no visual loss
Facial Palsy: 1=Minor paralysis
Motor - Right Arm: 0=No drift 10 seconds
Motor - Left Arm: 0=No drift 10 seconds
Motor - Right Le-None vs. gravity
Motor - Left Le-None vs. gravity
Limb Ataxia: 0-Absent
Sensation: 0-Normal
Best Language: 1-Mild aphasia
Dysarthria: 0-Normal
Extinction and Inattention: 0-No abnormality
Total Score:: 10
Modified Golden (mRS) Score
Modified Outlook Scale (mRS): Moderately severe disability. Unable to attend to bodily needs/walk.
Score: 4

Documented by User: Roscoe Marion MD 01/25/24 11:17
Modified Golden Score (MRS)
-
Score: 4
NIH Stroke Score
NIH Stroke Score
Total Score:: 10
Modified Outlook (mRS) Score
Score: 4
[2024-01-25 08:39] LABS: Glycohemoglobin (HgbA1c) 5.2 % (4.0-5.6)
--- NOTE | 2024-01-25 08:59 | W.PN.HOSP.TC ---
Addendum entered and electronically signed by Arlene Montalvo MD 01/25/24 19:21:
Patient seen and examined independently--agree with plan as set forth by Dr. Castro
GENERAL: well developed, well nourished, female in no apparent distress
HEENT: NC/AT--no O2 requirements
HEART: regular rate and rhythm, +S1, +S2
LUNGS : clear to auscultation bilaterally
ABDOM: soft, nontender, nondistended, + bowel sounds
EXT: no cyanosis, clubbing, or edema
NEUROLOGIC: apparent dementia
Change in mental status/activities of daily living--I believe that this is an exacerbation or progression of dementia not encephalopathy--OBS--given CAT scan finding cannot rule out subacute stroke--appreciate neurology-- MRI brain with cerebral
atrophy no acute findings, MRA without stenosis-- TSH, B12, folate all WNL--doubt seizures--NPH ruled out--continue aspirin, lipid panel shows Tchol 217 LDL 151, likely needs increase in statin--apprec PT/OT/speech
Dementia--continue donepezil
Essential hypertension--continue lisinopril and metoprolol with holding parameters
Depression--continue Trintellix
DVT prophylaxis--sequential teds
CODE STATUS--DNR
Original Note:
Today's Communication/Plan
-
.
Assessment / Plan
Assessment / Plan
Assessment
84-year-old female, resident of [facility] independent living( with ) with past medical history significant for dementia diagnosed in 2020, depression diagnosed in 2022, hypertension hypothyroidism was admitted for evaluation of
her recent decline in memory, cognition and speech issues�all of which have been worsening the past 2 weeks. Earlier this year patient was sick few times with COVID, pneumonia, shingles from which time her condition has been declining. She has
been receiving PT/OT who noticed that she has some gait dysfunction, leaning towards the left side and dragging her left feet. Workup in ER showed hemoglobin of 11.9, CAT scan with the possibility of subacute stroke. Neurology consulted.
Impression
Acute change in mental status
Dementia
Hypertension
Depression
Hypothyroidism
Plan
#Acute change in mental status
Worsening dementia versus subacute stroke( CT evidence )
Neurology was consulted
Workup for reversible causes of dementia-infectious versus vitamin deficiencies vs metabolic
TSH, vitamin B12 normal
B1 pending
Blood culture/urine culture pending
MRI brain and MRA neck pending
Continue aspirin
Neurochecks, NIH scales
# Dementia
Continue donepezil
#Hypertension
Continue lisinopril
#Depression
continue vortioxetine
#Hypothyroidism
Continue levothyroxine
Anticipated Discharge: Within 24 hours
Subjective/Interval History
-
Date of Service: January 25, 2024
Patient is seen with her daughter at bedside, who mentioned that she noticed her tremors have improved.
No acute overnight events.
Objective Data
-
Labs:
Laboratory Results
01/25/24
06:07
WBC 7.9
Hgb 11.9 L
Hct 35.3 L
Plt Count 192
Sodium 138
Potassium 3.9
Chloride 104
Carbon Dioxide 30
BUN 12
Creatinine 0.7
Glucose 98
Calcium 8.7
Total Bilirubin 0.7
AST 22
ALT 12
Alkaline Phosphatase 75
Vital Signs:
Vital Signs
Temp Pulse Resp BP Pulse Ox
97.7 F 69 16 170/78 92
01/25/24 07:25 01/25/24 07:25 01/25/24 07:25 01/25/24 07:25 01/25/24 07:25
Review of Systems
-
All other systems: Reviewed and negative (As per HPI)
Physical Exam
-
General: Well Developed, Well Nourished and No Apparent Distress
HEENT: Normocephalic and Atraumatic
Respiratory: Clear to Auscultation
Cardiac: S1/S2
Neuro: Awake, Alert, Nonfocal/Grossly Intact and Other (Strength bilateral U/E- 4/5, bilateral L/E- 3/5. )
[2024-01-25] MEDS: TOPROL XL 12.5 MG PO (09:01)
[2024-01-25] MEDS: LOW STRENGTH ASPIRIN 81 MG PO (09:01)
[2024-01-25] MEDS: ARICEPT 5 MG PO (09:02)
[2024-01-25] MEDS: ZESTRIL 20 MG PO (09:03)
--- NOTE | 2024-01-25 09:07 | PTOTSP ---
BEATING MACHINE OPERATOR Evaluations
Oral and pharyngeal stages of swallowing suspected to be WFL. Patient will require supervision/assistance with feeding based on current presentation/confusion.
Quick Aphasia Battery score was 5.85. Patient with at least moderate mixed expressive and receptive aphasia with relatively spared repetition. Suspect cognitive linguistic component contributing (baseline dementia; oriented to person only,
decreased STM). Will continue to follow pending results of further medical testing (MRI Brain).
Recommend:
1. Regular, Thin Liquids
2. Medications - as best tolerated
3. Supervision/assistance
4. Strategies: alternate sips/bites, slow rate, small sips/bites, check for oral residue
5. Further speech/language/cognitive testing and treatment pending further medical work up.
--- NOTE | 2024-01-25 09:35 | CM ---
Patient seen at bedside with daughters present in waiting room and . Plan for MRI today per nursing. Patient daughter with many questions pending results of testing. CM will continue to follow for discharge planning needs.
Plan; SNF vs home with aides and VN
[2024-01-25 09:43] LABS: Vitamin B12 548 pg/ml (239-931)
[2024-01-25] MEDS: ATIVAN 0.5 MG IV (16:45)
[2024-01-25] MEDS: NSS (PRESERVATIVE FREE) 0.25 ML IV (16:46)
--- NOTE | 2024-01-25 19:07 | PTCARENOTE ---
Stat dose of Ativan given to patient for anxiety to complete MRI.
[2024-01-26] VITALS (8 sets, daily range): BP systolic 121–159; BP diastolic 60–93; PULSE 89–90; O2SAT 94
--- NOTE | 2024-01-26 03:39 | DOWNTIME ---
There was a [employer] Client Communication Equipment Repairer Downtime on 01/26/2024 from 0100 to 01/26/2024 at 0337. Downtime documentation of patient's care, including medication administrations, has been reconciled in the electronic record per guidelines. Refer to the
patient's paper chart under the miscellaneous tab to see printed paper medication records and downtime forms.
[2024-01-26] MEDS: SYNTHROID 25 MCG PO (05:19)
--- NOTE | 2024-01-26 07:01 | W.PN.HOSP.TC ---
Addendum entered and electronically signed by Arlene Montalvo MD 01/26/24 18:42:
Patient seen and examined independently--agree with plan as set forth by Dr. Castro
GENERAL: well developed, well nourished, female in no apparent distress
HEENT: NC/AT--no O2 requirements
HEART: regular rate and rhythm, +S1, +S2
LUNGS : clear to auscultation bilaterally
ABDOM: soft, nontender, nondistended, + bowel sounds
EXT: no cyanosis, clubbing, or edema
NEUROLOGIC: apparent dementia
Change in mental status/activities of daily living--I believe that this is an exacerbation or progression of dementia not encephalopathy-- subacute stroke ruled out-- MRI brain with cerebral atrophy no acute findings, MRA without stenosis-- TSH,
B12, folate all WNL--doubt seizures--NPH ruled out--continue aspirin, lipid panel shows Tchol 217 LDL 151, likely needs increase in statin--apprec PT/OT/speech--apprec neuro
E. coli UTI--urine culture positive--agree with starting IV rocephin
Dementia--continue donepezil
Essential hypertension--continue lisinopril and metoprolol with holding parameters
Depression--continue Trintellix
DVT prophylaxis--sequential teds
CODE STATUS--DNR
Family looking at hospice--would prefer to take patient home with aides if possible--consult placed--anticipated discharge Wednesday back to [facility]
Original Note:
Today's Communication/Plan
-
Start ceftriaxone
Assessment / Plan
Assessment / Plan
Assessment
84-year-old female, resident of [facility] independent living( with ) with past medical history significant for dementia diagnosed in 2020, depression diagnosed in 2022, hypertension hypothyroidism was admitted for evaluation of
her recent decline in memory, cognition and speech issues�all of which have been worsening the past 2 weeks. Earlier this year patient was sick few times with COVID, pneumonia, shingles from which time her condition has been declining. She has
been receiving PT/OT who noticed that she has some gait dysfunction, leaning towards the left side and dragging her left feet. Workup in ER showed hemoglobin of 11.9, CAT scan with the possibility of subacute stroke. Neurology consulted. MRI
brain�cerebral atrophy, chronic small vessel ischemia in the cerebral white matter, no acute MRI findings. MRA neck�no stenosis exceeding 50% in either carotid arterial system. She had elevated levels of LDL 151, total cholesterol 217.
Impression
Acute change in mental status
UTI
Dementia
Hypertension
Depression
Hypothyroidism
Hyperlipidemia
Plan
#Acute change in mental status
Worsening dementia versus subacute stroke( CT evidence )
Neurology was consulted
Workup for reversible causes of dementia-infectious versus vitamin deficiencies vs metabolic
TSH, vitamin B12 normal
B1 pending
Blood culture/urine culture pending
MRI brain -There is cerebral atrophy. The appearance is asymmetric (with the atrophy being greater in the left frontal and parietal lobes compared with contralateral frontal and parietal lobes)
Chronic small vessel ischemia in the cerebral white matter
No acute MR findings
MRA neck - No stenosis exceeding 50% in either carotid arterial system
Goals of care discussed, considering home with aides and therapies, consideration for hospice.
Stop aspirin
# UTI
Urine culture�E. coli
Start ceftriaxone 1000 mg IV daily
Adequate hydration
# Dementia
Continue donepezil
#Hypertension
Continue lisinopril
#Depression
continue vortioxetine
#Hypothyroidism
Continue levothyroxine
# Hyperlipidemia
Total cholesterol 217, LDL 151
Anticipated Discharge: 24 - 48 hours
Subjective/Interval History
-
Date of Service: January 26, 2024
Patient feels very weak.
Objective Data
-
Labs:
Laboratory Results
01/26/24
06:47
WBC Pending
Hgb Pending
Hct Pending
Plt Count Pending
Sodium Pending
Potassium Pending
Chloride Pending
Carbon Dioxide Pending
BUN Pending
Creatinine Pending
Glucose Pending
Calcium Pending
Vital Signs:
Vital Signs
Temp Pulse Resp BP Pulse Ox
97.7 F 85 14 121/93 95
01/26/24 03:51 01/26/24 03:51 01/26/24 03:51 01/26/24 03:51 01/26/24 03:51
I&O
01/25/24 01/26/24 01/27/24
06:59 06:59 06:59
Intake Total 240 / 240
Output Total 400 / 400
Balance -160 / -160
Review of Systems
-
All other systems: Reviewed and negative (As per HPI)
Physical Exam
-
General: No Apparent Distress
HEENT: Normocephalic and Atraumatic
Respiratory: Clear to Auscultation
Cardiac: S1/S2
Skin: Warm and Dry
Neuro: Awake and Alert
Psych: Confused
[2024-01-26 07:21] LABS: Hematocrit 34.7 % (37.0-47.0); Hemoglobin 11.7 g/dL (12.0-16.0); Mean Corp Hgb Conc. 33.7 g/dL (33.0-37.0); Mean Corpuscular Hgb 28.3 pg (27.0-31.0); Mean Platelet Volume 9.4 fL (7.4-10.4); Platelet Count 193 10^3/uL (130-400); Red Blood Cell Count 4.13 10^6/uL (4.20-5.40); White Blood Cell Count 8.5 10^3/uL (4.8-10.8)
[2024-01-26 08:05] LABS: Blood Urea Nitrogen 14 mg/dl (7-17); Calcium 8.9 mg/dl (8.4-10.2); Carbon Dioxide 28 mmol/L (22-30); Chloride 102 mmol/L (98-107); Estimated Creatinine Clearance 47 ml/min; Glucose 96 mg/dl (70-99); Potassium 4.1 mmol/L (3.5-5.1); Sodium 135 mmol/L (135-145); eGFR > 60.00
[2024-01-26] MEDS: TOPROL XL 12.5 MG PO (08:16)
[2024-01-26] MEDS: ARICEPT 5 MG PO (08:17)
[2024-01-26] MEDS: ZESTRIL 20 MG PO (08:17)
[2024-01-26] MEDS: TYLENOL 650 MG PO (08:23)
--- NOTE | 2024-01-26 12:34 | CM ---
Addendum entered by Stephanie Duffy 01/26/24 15:09:
Patient daughter and POA indicated that she would like to have mother return to independent apartment with hospice and visiting angels. CM will send referral to [facility] after discussion with POA. CM will continue to follow for discharge planning
needs.
Original Note:
Patient seen at bedside with and one daughter. CM reviewed recommendations of PT/OT for SNF. CM will discuss options with POA and plan for referral to [facility] for short term, private pay, as patient is OBS/BACA status. CM will continue to
follow for discharge planning needs.
Plan; SNF; pending referrals and acceptance.
--- NOTE | 2024-01-26 14:16 | W.PN.NEURO.1 ---
Addendum entered and electronically signed by Arlene Montalvo MD 01/26/24 18:38:
error: started addendum on the wrong note
please disregard
Original Note:
Today's Communication / Plan
-
-Stop aspirin
-Goals of care, considering home with aides and therapies, consideration for hospice given I expect continued decline as most likely
-Stop NIH and neurologic checks
-Minimize sedating medications
-Supportive care
Neuro Assessment/Plan
Assessment
84-year-old female with a PMH of nonspecific dementia, HTN, depression who presents to the hospital on 01/24/24 after being referred by primary care doctor due to significant overall worsening in function as well as gait and speech over the past 2
weeks which seem to be an abrupt change.
Patient had had an overall decline over the course of the couple months even before her rapid decline 2 weeks ago. She had had at first COVID infection at the end of July and early August, then followed by pneumonia for which she was treated
with antibiotics in the early part of September, and then had what was felt to be most likely shingles in October with a small rash bilaterally in the upper shoulders. With each of these conditions she did not make a significant back and she had
significant immobility during them.
Working with physical therapy has seen significant worsening in her walking ability to the point where she cannot walk on her own. She also seems to be leaning to the left a little bit more in the past 2 weeks and has significant change in her
speech around 2 weeks ago. Her noticed that there may have been some subtle dragging in the left leg which seem to be a bit of a change from baseline although she has had some orthopedic issues of the left leg in the past.
Patient was diagnosed with early dementia along with some depression around 5 years ago they did see a neurologist at this time and have continue to follow with a psychiatrist buthave not seen a neurologist in a couple of years. Family does feel
like they have seen cognitive changes in memory consistent with worsening dementia over the past 5 years.
-CT head 01/24/24 with asymmetry on right parietal lobe crowded nearly absent sulci but no clear hypodensity, possible anatomic variant like polymicrogyria versus subacute infarct, less likely a neoplasm. No hemorrhage.
Brain MRI negative, no infarct, asymmetry seen which is anatomic
Very likely this is progression in dementia due to multiple insults of illness in patient with frailty
Subjective/Objective
Subjective Data
Date of Service: January 26, 2024
No acute events, patient calm, no complaints, discussed thougths with family
Objective Data
Vital Signs
Temp Pulse Resp BP Pulse Ox
98.5 F 79 14 144/78 95
01/26/24 11:15 01/26/24 11:15 01/26/24 11:15 01/26/24 11:15 01/26/24 11:15
Lab Results
01/26/24 06:47
01/26/24 06:47
Sodium 135 mmol/L (135-145) 01/26/24 06:47
Potassium 4.1 mmol/L (3.5-5.1) 01/26/24 06:47
BUN 14 mg/dl (7-17) 01/26/24 06:47
Glucose 96 mg/dl (70-99) 01/26/24 06:47
Calcium 8.9 mg/dl (8.4-10.2) 01/26/24 06:47
LDL Cholesterol, Calc 151 mg/dl 01/25/24 06:07
Vitamin B12 548 pg/ml (239-931) 01/25/24 08:02
Patient Allergies
No Known Allergies Allergy (Verified 01/24/24 09:53)
Review of Systems
-
History Source: Patient
All other systems: Reviewed and negative
Constitutional: No Symptoms
EENT: No Symptoms Reported
Respiratory: No Symptoms
Cardiac: No Symptoms
Abdomen/GI: No Symptoms
Genitourinary: No Symptoms
Musculoskeletal: No Symptoms
Skin: No Symptoms
Neuro: Speech Problem
Endocrine: No Symptoms
Hematologic / Lymphatic: No Symptoms
Allergy / Immunology: No Symptoms
Physical Exam
-
General: Appears in Distress
Eyes: No Ptosis
HEENT: Normocephalic
Neck: No Bruits Bilaterally
Respiratory: Clear to Auscultation
Cardiac: Regular Rhythm
GI: Normal Bowel Sounds
Skin: Unremarkable
Extremities: No Clubbing
Psych: Unremarkable
Extended Neurological Exam
Mood & Affect: Mood Unremarkable and Affect Unremarkable
Attention Span & Concentration: Awake, Alert, Interactive and Other (Dementia apparent)
Memory: Unremarkable
Tremor: Hand Tremor Absent
Involuntary Movement: None
Speech: Quality Unremarkable and Quantity Unremarkable
Cranial Nerve II: Left Eye: Pupillary Reactivity Unremarkable, Pupillary Size Unremarkable and Visual Lerner Intact
Cranial Nerve II: Right Eye: Pupillary Reactivity Unremarkable, Pupillary Size Unremarkable and Visual Lerner Intact
Cranial Nerves III, IV, : Extraocular Movement: Extraocular Movement Full in all Directions
Muscle Strength, Overall: Full Throughout
[2024-01-26] MEDS: ROCEPHIN 1000 MG IV (14:25)
[2024-01-26] MEDS: STERILE WATER FOR INJECTION 10 ML IV (14:26)
--- NOTE | 2024-01-26 16:07 | PTCARENOTE ---
Report was anna to 4W RN. Pt offered no complains at that time.
[2024-01-27] MEDS: TYLENOL 650 MG PO (01:19)
[2024-01-27 01:30] VITALS: BP 156/91
[2024-01-27 03:21] VITALS: BP 131/92
[2024-01-27 06:07] LABS: % Basophils 0.6 % (0-2); % Eosinophils 0.8 % (0-6); % Immature Granulocytes 0.3 % (0-0.5); % Lymphocytes 23.2 % (20.5-51.1); % Monocytes 6.5 % (1.7-9.3); % Neutrophils 68.6 % (42.2-75.2); Absolute Basophils 0.1 10^3/uL (0-0.2); Absolute Eosinophils 0.1 10^3/uL (0-0.7); Absolute Lymphocytes 2.1 10^3/uL (1.2-3.4); Absolute Monocytes 0.6 10^3/uL (0.1-0.6); Absolute Neutrophils 6.1 10^3/uL (1.4-6.5); Hematocrit 34.8 % (37.0-47.0); Mean Corp Hgb Conc. 34.5 g/dL (33.0-37.0); Mean Corpuscular Hgb 28.3 pg (27.0-31.0); Mean Corpuscular Volume 82.1 fL (81.0-99.0); Mean Platelet Volume 9.5 fL (7.4-10.4); Nucleated Red Blood Cells % 0 %; Platelet Count 203 10^3/uL (130-400); Red Blood Cell Count 4.24 10^6/uL (4.20-5.40); Red Cell Dist. Width 14.3 % (11.5-14.5); White Blood Cell Count 8.9 10^3/uL (4.8-10.8)
[2024-01-27 06:33] LABS: ALT (SGPT) 13 U/L (0-35); AST (SGOT) 21 U/L (14-36); Albumin 3.6 g/dl (3.5-5.0); Alkaline Phosphatase 88 U/L (38-126); Blood Urea Nitrogen 12 mg/dl (7-17); Calcium 9.1 mg/dl (8.4-10.2); Carbon Dioxide 27 mmol/L (22-30); Chloride 103 mmol/L (98-107); Estimated Creatinine Clearance 47 ml/min; Glucose 103 mg/dl (70-99); Potassium 3.7 mmol/L (3.5-5.1); Sodium 137 mmol/L (135-145); Total Bilirubin 0.7 mg/dl (0.2-1.3); Total Protein 6.5 g/dl (6.3-8.2); eGFR > 60.00
--- NOTE | 2024-01-27 07:31 | W.PN.HOSP.TC ---
Addendum entered and electronically signed by Arlene Montalvo MD 01/27/24 17:13:
Patient seen and examined independently--agree with plan as set forth by Dr. Castro
GENERAL: well developed, well nourished, female in no apparent distress
HEENT: NC/AT--no O2 requirements
HEART: regular rate and rhythm, +S1, +S2
LUNGS : clear to auscultation bilaterally
ABDOM: soft, nontender, nondistended, + bowel sounds
EXT: no cyanosis, clubbing, or edema
NEUROLOGIC: apparent dementia
Change in mental status/activities of daily living--I believe that this is an exacerbation or progression of dementia not encephalopathy-- subacute stroke ruled out-- MRI brain with cerebral atrophy no acute findings, MRA without stenosis-- TSH,
B12, folate all WNL--doubt seizures--NPH ruled out--continue aspirin, lipid panel shows Tchol 217 LDL 151, likely needs increase in statin--will opt against doing that as pt going home on hospice 01/27--apprec PT/OT/speech--apprec neuro
E. coli UTI--urine culture positive--agree with starting IV rocephin--to Keflex at d/c to complete 5 day course
Dementia--continue donepezil
Essential hypertension--continue lisinopril and metoprolol with holding parameters
Depression--continue Trintellix
DVT prophylaxis--sequential teds
CODE STATUS--DNR
Original Note:
Today's Communication/Plan
-
.
Assessment / Plan
Assessment / Plan
Assessment
84-year-old female, resident of [facility] independent living( with ) with past medical history significant for dementia diagnosed in 2020, depression diagnosed in 2022, hypertension hypothyroidism was admitted for evaluation of
her recent decline in memory, cognition and speech issues�all of which have been worsening the past 2 weeks. Earlier this year patient was sick few times with COVID, pneumonia, shingles from which time her condition has been declining. She has
been receiving PT/OT who noticed that she has some gait dysfunction, leaning towards the left side and dragging her left feet. Workup in ER showed hemoglobin of 11.9, CAT scan with the possibility of subacute stroke. Neurology consulted. MRI
brain�cerebral atrophy, chronic small vessel ischemia in the cerebral white matter, no acute MRI findings. MRA neck�no stenosis exceeding 50% in either carotid arterial system. She had elevated levels of LDL 151, total cholesterol 217.
Impression
Acute change in mental status
UTI
Dementia
Hypertension
Depression
Hypothyroidism
Hyperlipidemia
Plan
#Acute change in mental status
Worsening dementia versus subacute stroke( CT evidence )
Neurology was consulted
Workup for reversible causes of dementia-infectious versus vitamin deficiencies vs metabolic
TSH, vitamin B12 normal
B1 pending
Blood culture/urine culture pending
MRI brain -There is cerebral atrophy. The appearance is asymmetric (with the atrophy being greater in the left frontal and parietal lobes compared with contralateral frontal and parietal lobes)
Chronic small vessel ischemia in the cerebral white matter
No acute MR findings
MRA neck - No stenosis exceeding 50% in either carotid arterial system
Goals of care discussed, considering home with aides and therapies, consideration for hospice.
Stop aspirin
# UTI
Urine culture�E. coli
ceftriaxone 1000 mg IV daily-day 2
Adequate hydration
# Dementia
Continue donepezil
#Hypertension
Continue lisinopril
#Depression
continue vortioxetine
#Hypothyroidism
Continue levothyroxine
# Hyperlipidemia
Total cholesterol 217, LDL 151
Family considering hospice�discharge Wednesday on hospice.
Anticipated Discharge: Within 24 hours
Subjective/Interval History
-
Date of Service: January 27, 2024
Patient is confused, but appears comfortable.
Objective Data
-
Labs:
Laboratory Results
01/27/24
04:34
WBC 8.9
Hgb 12.0
Hct 34.8 L
Plt Count 203
Sodium 137
Potassium 3.7
Chloride 103
Carbon Dioxide 27
BUN 12
Creatinine 0.8
Glucose 103 H
Calcium 9.1
Total Bilirubin 0.7
AST 21
ALT 13
Alkaline Phosphatase 88
Vital Signs:
Vital Signs
Temp Pulse Resp BP Pulse Ox
96.5 F L 79 18 131/92 93
01/27/24 03:21 01/27/24 03:21 01/27/24 03:21 01/27/24 03:21 01/27/24 03:21
I&O
01/26/24 01/27/24 01/28/24
06:59 06:59 06:59
Intake Total 240 / 240
Output Total 400 / 400 500 / 500
Balance -160 / -160 -500 / -500
Review of Systems
-
All other systems: Reviewed and negative (As per HPI)
Physical Exam
-
General: Well Developed and Well Nourished
HEENT: Normocephalic and Atraumatic
Respiratory: Clear to Auscultation
Cardiac: S1/S2
Skin: Warm and Dry
Neuro: Awake and Alert
Psych: Confused
[2024-01-27 07:33] VITALS: BP 142/87
--- NOTE | 2024-01-27 08:31 | CM ---
Addendum entered by Stephanie Duffy 01/27/24 15:59:
Plan for discharge tomorrow at 10am, CM called to [facility] and confirmed all documentation is in place and they are confirming delivery of DME. CM tubed up to the floor the out of hospital DNR and the medical necessity form for ambulance and updated
liaison with Ambulance as well as the reverse unit operator. CM will continue to follow for discharge planning needs.
Original Note:
[facility] accepted patient and CM spoke with daughter update provided as well as additional options for aides/companions. CM spoke with [facility] liaison and she is to have agency call daughter to review paperwork and needs.
plan; home with hospice and aides.
[2024-01-27] MEDS: ZESTRIL 20 MG PO (09:08)
[2024-01-27] MEDS: TOPROL XL 12.5 MG PO (09:08)
[2024-01-27] MEDS: SYNTHROID 25 MCG PO (09:09)
[2024-01-27] MEDS: ARICEPT 5 MG PO (09:09)
[2024-01-27 11:28] VITALS: BP 170/82
[2024-01-27] MEDS: ATIVAN 0.5 MG PO (12:53)
[2024-01-27] MEDS: ROCEPHIN 1000 MG IV (12:54)
[2024-01-27] MEDS: STERILE WATER FOR INJECTION 10 ML IV (12:55)
[2024-01-27] MEDS: FLUSH (NSS) 1 FLUSH IV (12:57)
[2024-01-27 15:29] LABS: Vitamin B1, Whole Blood 109 nmol/L (70-180)
[2024-01-27 16:07] VITALS: BP 162/94
[2024-01-27 23:59] VITALS: BP 175/75
[2024-01-28] MEDS: SYNTHROID 25 MCG PO (05:19)
--- NOTE | 2024-01-28 05:50 | W.DCSUMMARY ---
Addendum entered and electronically signed by Arlene Montalvo MD 01/28/24 16:51:
Fully read and agree with summary as set forth by Dr. Castro.
Nothing further to add.
Original Note:
Discharge Summary
Discharge Data
Date of Admission: 01/26/24
Date of Discharge: 01/28/24
-
Pending Results: No
Hospital Course
Discharging Physician : Dr. Arlene Montalvo, Dr. Talita Castro
Disposition : Home on hospice
Primary care physician : Dr. Jocelyn Pelaez
Principal Discharge diagnosis : Acute on chronic altered mental status
Chronic Discharge diagnosis : UTI, dementia, hypertension, depression, hypothyroidism, hyperlipidemia
Hospital Course : 84-year-old female, resident of [facility]( with ) with past medical history significant for dementia diagnosed in 2020, depression diagnosed in 2022, hypertension hypothyroidism was admitted
for evaluation of her recent decline in memory, cognition and speech issues�all of which have been worsening the past 2 weeks. Earlier this year patient was sick few times with COVID, pneumonia, shingles from which time her condition has been
declining. She has been receiving PT/OT who noticed that she has some gait dysfunction, leaning towards the left side and dragging her left feet. Workup in ER showed hemoglobin of 11.9, CAT scan with the possibility of subacute stroke. Neurology
consulted. MRI brain�cerebral atrophy, chronic small vessel ischemia in the cerebral white matter, no acute MRI findings. MRA neck�no stenosis exceeding 50% in either carotid arterial system. Patient managed with frequent neurochecks and NIH
scales. Workup was done for reversible causes of dementia-TSH, vitamin B12, vitamin B 1, blood cultures within normal range. Urine culture�evidence of UTI with E. coli. She was started on IV ceftriaxone 1000 mg daily. Aspirin was stopped, rest
of her home medications donepezil, lisinopril, vortioxetine, levothyroxine were continued. PT/OT/speech eval was consulted, who recommended skilled rehab upon discharge. Patient was treated with Ativan as needed for anxiety. Goals of care were
discussed with the family�considering home with aides/consideration for hospice. She had elevated levels of LDL 151, total cholesterol 217, likely needs a statin, but opted against doing that as patient is going home on hospice. Patient is
clinically stable prior to discharge. Her IV ceftriaxone discontinued, transition to oral Keflex for 3 more days to complete 5-day course.
Discharge Plan
-
Patient Disposition: Home with Hospice
Discharge Diagnosis/Procedures: Acute on chronic alteration mental status, dementia, hypertension, depression, hypothyroidism, hyperlipidemia, UTI
Condition: Fair
Diet: As tolerated, Low Fat and Low Sodium
Activity: As tolerated
Driving Restrictions: No driving
Bathing Restrictions: None
Other Services: VN and Hospice
Referrals:
Jocelyn Pelaez, DO [Family Provider] - in less than 1 week
Additional Discharge Medication Instructions: start cephalexin today for UTI
Prescriptions:
New
cephalexin 500 mg capsule
500 mg PO BID Qty: 6 0RF
Continued
donepezil 10 mg tablet
5 mg PO DAILY
levothyroxine 25 mcg tablet
25 mcg PO DAILY
metoprolol succinate 25 mg tablet extended release 24 hr
12.5 mg PO DAILY
lisinopril 40 mg tablet
20 mg PO DAILY
Trintellix 20 mg tablet
15 mg PO DAILY
Discharge Orders:
Discharge Patient (As Directed); Ordered 01/28/24
Ordered By: Talita Castro
Discharge Date and Time
Discharge Date/Time: 01/28/24 12:37
Print Language: LUXEMBOURGISH
--- NOTE | 2024-01-28 06:30 | W.PN.HOSP.TC ---
Addendum entered and electronically signed by Arlene Montalvo MD 01/28/24 16:25:
Patient seen and examined independently--agree with plan as set forth by Dr. Castro
GENERAL: well developed, well nourished, female in no apparent distress
HEENT: NC/AT--no O2 requirements
HEART: regular rate and rhythm, +S1, +S2
LUNGS : clear to auscultation bilaterally
ABDOM: soft, nontender, nondistended, + bowel sounds
EXT: no cyanosis, clubbing, or edema
NEUROLOGIC: apparent dementia
d/c home hospice
exacerbation or progression of dementia not encephalopathy-- subacute stroke ruled out-- MRI brain with cerebral atrophy no acute findings, MRA without stenosis-- TSH, B12, folate all WNL--no seizures--NPH ruled out per neuro--continue aspirin,
lipid panel shows Tchol 217 LDL 151, likely needs increase in statin--will opt against doing that as pt going home on hospice 01/27--apprec PT/OT/speech--apprec neuro
E. coli UTI--urine culture positive--agree with starting IV rocephin--to Keflex at d/c to complete 5 day course
Dementia--continue donepezil
Essential hypertension--continue lisinopril and metoprolol with holding parameters
Depression--continue Trintellix
DVT prophylaxis--sequential teds
CODE STATUS--DNR
Original Note:
Today's Communication/Plan
-
Discharge today to home on hospice.
Assessment / Plan
Assessment / Plan
Assessment
84-year-old female, resident of [facility] independent living( with ) with past medical history significant for dementia diagnosed in 2020, depression diagnosed in 2022, hypertension hypothyroidism was admitted for evaluation of
her recent decline in memory, cognition and speech issues�all of which have been worsening the past 2 weeks. Earlier this year patient was sick few times with COVID, pneumonia, shingles from which time her condition has been declining. She has
been receiving PT/OT who noticed that she has some gait dysfunction, leaning towards the left side and dragging her left feet. Workup in ER showed hemoglobin of 11.9, CAT scan with the possibility of subacute stroke. Neurology consulted. MRI
brain�cerebral atrophy, chronic small vessel ischemia in the cerebral white matter, no acute MRI findings. MRA neck�no stenosis exceeding 50% in either carotid arterial system. She had elevated levels of LDL 151, total cholesterol 217.
Impression
Acute change in mental status
UTI
Dementia
Hypertension
Depression
Hypothyroidism
Hyperlipidemia
Plan
#Acute change in mental status
Worsening dementia versus subacute stroke( CT evidence )
Neurology was consulted
Workup for reversible causes of dementia-infectious versus vitamin deficiencies vs metabolic
TSH, vitamin B12 normal
B1 pending
Blood culture/urine culture pending
MRI brain -There is cerebral atrophy. The appearance is asymmetric (with the atrophy being greater in the left frontal and parietal lobes compared with contralateral frontal and parietal lobes)
Chronic small vessel ischemia in the cerebral white matter
No acute MR findings
MRA neck - No stenosis exceeding 50% in either carotid arterial system
Goals of care discussed, considering home with aides and therapies, consideration for hospice.
Stop aspirin
# UTI
Urine culture�E. coli
ceftriaxone 1000 mg IV daily-day 2
Adequate hydration
Transition to oral cephalexin upon discharge for 3 more days
# Dementia
Continue donepezil
#Hypertension
Continue lisinopril
#Depression
continue vortioxetine
#Hypothyroidism
Continue levothyroxine
# Hyperlipidemia
Total cholesterol 217, LDL 151
Not started on statins as patient is going home on hospice.
# Anxiety episodes treated with Ativan as needed.
Family considering hospice�discharge today on hospice.
Anticipated Discharge: Today
Subjective/Interval History
-
Date of Service: January 28, 2024
Objective Data
-
Vital Signs:
Vital Signs
Temp Pulse Resp BP Pulse Ox
98.1 F 85 20 175/75 94
01/27/24 23:59 01/27/24 23:59 01/27/24 23:59 01/27/24 23:59 01/27/24 23:59
I&O
01/26/24 01/27/24 01/28/24
06:59 06:59 06:59
Intake Total 240 / 240 480 / 480
Output Total 400 / 400 500 / 500
Balance -160 / -160 -500 / -500 480 / 480
Review of Systems
-
Unable to obtain full review of systems at this time due to: Dementia
Physical Exam
-
General: Well Developed and Well Nourished
HEENT: Normocephalic and Atraumatic
Respiratory: Clear to Auscultation
Cardiac: S1/S2
Skin: Warm and Dry
Neuro: Awake
Psych: Confused
[2024-01-28] MEDS: ZESTRIL 20 MG PO (07:26)
[2024-01-28] MEDS: TOPROL XL 12.5 MG PO (07:27)
[2024-01-28] MEDS: ARICEPT 5 MG PO (07:27)
[2024-01-28 07:29] VITALS: BP 168/93
[2024-01-28] MEDS: ATIVAN 0.5 MG PO (10:54)
--- NOTE | 2024-01-28 13:12 | CM ---
Patient family completed IMM and signed form placed on chart. Patient going home with hospice from [facility] and visiting [facility]. CM will continue to follow for discharge planning needs.
Plan; home with hospice and aides
== END 2024-01-28 12:37 | disposition hospice, home (50) | DRG 690 ==
LOC: 4 WEST ACU 18:27
PROVIDERS: Student in an Organized Health Care Education/Training Program; ADMITTING PHYSICIAN Internal Medicine; CONSULT PHYSICIAN Student in an Organized Health Care Education/Training Program; EMERGENCY PHYSICIAN Emergency Medicine; FAMILY PHYSICIAN Hospitalist
DX: N39.0 Urinary tract infection, site not specified (principal); F03.A0 Unspecified dementia, mild, without behavioral disturbance, psychotic disturbance, mood disturbance, and anxiety; I10 Essential (primary) hypertension; E03.9 Hypothyroidism, unspecified; F32.A Depression, unspecified; B96.20 Unspecified Escherichia coli [E. coli] as the cause of diseases classified elsewhere; E78.5 Hyperlipidemia, unspecified; Z66 Do not resuscitate; R41.82 Altered mental status, unspecified; Z79.890 Hormone replacement therapy; Z79.899 Other long term (current) drug therapy; Z86.16 Personal history of COVID-19; Z87.01 Personal history of pneumonia (recurrent); Z86.19 Personal history of other infectious and parasitic diseases; Z90.49 Acquired absence of other specified parts of digestive tract; Z90.710 Acquired absence of both cervix and uterus; Z96.652 Presence of left artificial knee joint
CPT/HCPCS: 70450; 70548; 70551; 80048; 80053; 80061; 81003; 81015; 82140; 82607; 82746; 83036; 83735; 84425; 84443; 85025; 85027; 87040; 87070; 87077; 87086; 87186; 92523; 92610; 96374; 97163; 97167; 97530; 97535; 99285; A9585

== ENCOUNTER → 2024-02-04 19:06 | Outpatient (REF) | payer MEDICARE, OTHER, BC, SELFPAY ==
[2024-02-04 19:47] LABS: Urine Albumin Negative (Neg - Trace); Urine Bilirubin 1+ (Negative); Urine Character Slightly Cloudy (Clear); Urine Color Amber; Urine Glucose Negative (Negative); Urine Ketone Trace (Negative); Urine Leukocyte 1+ (Negative); Urine Nitrite Negative (Negative); Urine Occult Blood Negative (Negative); Urine Specific Gravity 1.015 (<1.030); Urine Urobilinogen 1+ (Neg - 1+)
[2024-02-04 20:02] LABS: Urine Squamous Cell >30 /LPF (Few)
[2024-02-04 20:03] LABS: Urine Calcium Oxalate Crystals Present; Urine White Cell 16-20 /HPF (0-5)
[2024-02-04 20:04] LABS: Urine Bacteria Many (Negative); Urine Red Blood Cell None Seen /HPF (0-2)
== END ==
LOC: OLABMERCHI 19:06
PROVIDERS: ATTENDING PHYSICIAN Nurse Practitioner Gerontology; FAMILY PHYSICIAN Hospitalist
DX: N39.0 Urinary tract infection, site not specified (principal)
CPT/HCPCS: 81003; 81015; 87077; 87086; 87186